=== PATIENT | female | born 1980 | race Caucasian/White ===

== ENCOUNTER 2016-06-22 09:31 | Emergency (ER) | payer OTHER ==
[~2016-06-22] VITALS: Wt 69.5 kg
[2016-06-22 10:38] LABS: BASOPHILS % 0.3 % (0.0-2.0); EOSINOPHILS # 0.1 10^3/ul (0.0-0.5); EOSINOPHILS % 0.7 % (0.0-7.0); HEMATOCRIT 40.6 % (37.0-47.0); HEMOGLOBIN 13.7 g/dl (12.0-16.0); LYMPHOCYTES # 1.8 10^3/ul (0.8-2.9); LYMPHOCYTES % 22.7 % (15.0-51.0); MEAN CORPUSCULAR HEMOGLOBIN 28.2 pg (29.0-33.0); MEAN CORPUSCULAR HGB CONC 33.7 g/dl (32.0-37.0); MEAN CORPUSCULAR VOLUME 83.6 fl (82.0-101.0); MEAN PLATELET VOLUME 8.1 fl (7.4-10.4); MONOCYTE # 0.4 10^3/ul (0.3-0.9); MONOCYTES % 4.7 % (0.0-11.0); NEUTROPHIL # 5.7 10^3/ul (1.6-7.5); NEUTROPHILS % 71.6 % (39.0-77.0); PLATELET COUNT 264 10^3/UL (140-440); RED BLOOD COUNT 4.85 10^6/ul (4.20-5.40); RED CELL DISTRIBUTION WIDTH 12.8 % (11.5-14.5); UNCORRECTED WBC 7.9 10^3/ul (4.8-10.8); WHITE BLOOD COUNT 7.9 10^3/ul (4.8-10.8)
[2016-06-22 10:43] LABS: CONDITION 1
[2016-06-22 10:44] LABS: ADD UMIC YES; URINE BILIRUBIN (Dip) NEGATIVE (NEGATIVE); URINE BLOOD (Dip) TRACE (NEGATIVE); URINE COLOR LT. YELLOW (YELLOW); URINE GLUCOSE (Dip) NEGATIVE (NEGATIVE); URINE KETONES (Dip) NEGATIVE (NEGATIVE); URINE LEUKOCYTE ESTERASE (Dip) NEGATIVE (NEGATIVE); URINE NITRITE (Dip) NEGATIVE (NEGATIVE); URINE TOTAL PROTEIN (Dip) NEGATIVE (NEGATIVE); URINE UROBILINOGEN (Dip) 0.2 E.U./dL (0.1-1.0)
[2016-06-22 11:05] LABS: URINE RBCS 0-2 /HPF (0)
[2016-06-22 11:06] LABS: BACTERIA,URINE RARE
--- NOTE | 2016-06-22 11:19 | RADRPT ---
PROCEDURE: US Pelvis. CLINICAL INDICATION: Pelvic pain, vaginal bleeding, female TECHNIQUE: Multiple sonographic images of the pelvis were obtained utilizing a transabdominal and endovaginal technique. The images were reviewed on a PACS workstation. COMPARISON: None. FINDINGS: The uterus is anteverted and measures 10.3 x 6.5 x 5.5 cm. Within the uterus, there is a single, allan e, intrauterine with an estimated ultrasound age of 10 weeks 0 days. The crown-rump lengt h is 3.34 cm. The estimated date of delivery is January 18, 2017. The heart rate is 161 beats per minute. There is a 2.4 x 2.0 x 0.9 cm area of subchorionic hemorrhage. There is no evidence for free fluid. The right ovary has a normal echotexture and measures 3.8 x 3.5 x 3.1 cm . The left ovary has a normal echotexture and measures 3.5 x 3.3 x 2.3 cm. No adnexal ma sses are noted. IMPRESSION: 1. Single, live, 58-jhjh-0-day intrauterine with a small area of subchorionic hemorrhage. The estimated date of delivery is January 18, 2017. Continued sonographic follow-up is recommended. 2. Otherwise, unremarkable pelvic ultrasound. RPTAT: EE .Valeria Best MD, MD Date Time Electronically viewed and signed by .Valeria Best MD, on 06/22/2016 11:18 .F/
[2016-06-22 12:57] VITALS: BP 129/87; PULSE 89; RESP 18; TEMP 98.1
--- NOTE | 2016-06-22 16:40 | ERD ---
DATE OF SERVICE: 06/22/2016 HISTORY OF PRESENT ILLNESS: The patient is a 36-year-old female coming in complaining of vaginal bl eeding. Patient states she is 10 weeks . Last normal menstrual period was 04/09/2016. She is being seen by Dr. Higgins. She has no abdominal pain, no clotting. She says she just occasional br ight regular, not saturating through both pads, G1, P0, A0. PAST MEDICAL HISTORY: Denies medical problems. ALLERGIES: DENIES. SURGICAL HISTORY: Laparoscopic surgery for fibroid removal. REVIEW OF SYSTEMS: A 12-point review of systems was done. Refer to HPI for positives, all other sy stems negative. PHYSICAL EXAMINATION VITAL SIGNS: Temperature is 97.3, pulse 101, blood pressure is 136/90, respiratory 18, O2 saturatio n 99% on room air. Pain intensity of 3/10. GENERAL: The patient is well-appearing, well-nourished, no acute distress. HEENT: Atraumatic. Conjunctivae are pink. Pupils equal, round, and reactive to light. There is no s cleral icterus. Tympanic membranes clear bilaterally. Oropharynx clear. No nystagmus or photophobia . NECK: C-spine is soft and supple. There is no meningismus. There is no cervical lymphadenopathy. No JVD. No bruits. No goiter. CHEST: Clear to auscultation bilaterally. There are no rales, wheezes or rhonchi. HEART: Regular rate and rhythm. No murmurs, clicks, rubs or gallops. No S3 or S4. ABDOMEN: Soft, nontender and nondistended. Good bowel sounds. No rebound or guarding. No gross elida tonitis. No gross organomegaly or masses. No Kaiser sign or McBurney point tenderness. BACK: No midline or flank tenderness. SKIN: There is no apparent rash or petechia. The skin is warm and dry. EMERGENCY ROOM COURSE: The patient had blood work done in the ER. CBC was within normal limits. B eta quant was 184,490. Patient's urine was negative. The patient's blood type is B positive and ob stetric ultrasound showed single live 10-week-old 0-day intrauterine with a small area of subchorionic hemorrhage. Estimated date of delivery of 01/18/2017. Continued sonographic followup is recommended. Otherwise, unremarkable pelvic ultrasound. DIAGNOSES Vaginal bleeding in , possible miscarriage. MEDICAL DECISION MAKING: I have low suspicion for ectopic . Patient's hemoglobin is stabl e. Patient is not having serious heavy bleeding. The patient does not have signs of urinary tract infections, not require RhoGAM injection as she is Rh positive. Patient is stable for outpatient [facility]. Vital signs are stable. DISCHARGE: The patient is discharged stable. Patient is told to follow up with DELIMBER OPERATOR within 1 to 2 days. Patient was told if symptoms progress or worsen to return to the ER. All other questions a nswered at time of discharge. Discharge summary given at the time of departure. Patient understood and complied with plan. Patient was recommended to have pelvic rest to reduce risk of continued wo rsening bleeding. Dictated By: ROSITA KERR for VENANCIO VASQUEZ MD EH/NTS Conf#: [id number] DID#: [id number] CC: VENANCIO VASQUEZ MD;*EndCC*
== END 2016-06-22 12:59 | disposition home or self-care (01) ==
LOC: FTE 09:31
DX: O20.9 Hemorrhage in early pregnancy, unspecified (principal); Z3A.10 10 weeks gestation of pregnancy
CPT/HCPCS: 36415; 76801; 76817; 81001; 84702; 85025; 86900; 86901; Z7502; 81003

== ENCOUNTER 2017-01-21 13:37 | Inpatient (IN) | payer OTHER ==
[~2017-01-21] VITALS: Ht 154.9 cm; Wt 84.5 kg
[2017-01-21 13:58] VITALS: BP 146/89; PULSE 93; RESP 16; Ht 154.9 cm; Wt 84.5 kg
[2017-01-21 14:16] LABS: ADD UMIC YES; UR ASCORBIC ACID NEGATIVE (NEGATIVE); UR BACTERIA FEW /HPF (NONE SEEN); UR BILIRUBIN (Dip) NEGATIVE (NEGATIVE); UR BLOOD (Dip) NEGATIVE (NEGATIVE); UR CLARITY CLEAR (CLEAR); UR COLOR STRAW (YELLOW); UR GLUCOSE (Dip) NEGATIVE (NEGATIVE); UR KETONES (Dip) NEGATIVE (NEGATIVE); UR LEUKOCYTE ESTERASE (Dip) TRACE Leu/ul (NEGATIVE); UR NITRITE (Dip) NEGATIVE (NEGATIVE); UR RBC 0 /HPF (0-5); UR SPECIFIC GRAVITY (Dip) 1.009 (1.003-1.030); UR TOTAL PROTEIN (Dip) NEGATIVE (NEGATIVE); UR UROBILINOGEN (Dip) NEGATIVE (NEGATIVE)
[2017-01-21 14:55] LABS: BASOPHILS % 0.5 % (0.0-2.0); EOSINOPHILS # 0.1 10^3/ul (0.0-0.5); EOSINOPHILS % 0.6 % (0.0-7.0); HEMATOCRIT 41.3 % (37.0-47.0); HEMOGLOBIN 13.7 g/dl (12.0-16.0); LYMPHOCYTES # 1.8 10^3/ul (0.8-2.9); LYMPHOCYTES % 20.2 % (15.0-51.0); MEAN CORPUSCULAR HEMOGLOBIN 28.4 pg (29.0-33.0); MEAN CORPUSCULAR HGB CONC 33.2 g/dl (32.0-37.0); MEAN CORPUSCULAR VOLUME 85.7 fl (82.0-101.0); MEAN PLATELET VOLUME 11.1 fl (7.4-10.4); MONOCYTE # 0.7 10^3/ul (0.3-0.9); MONOCYTES % 7.6 % (0.0-11.0); NEUTROPHIL # 6.1 10^3/ul (1.6-7.5); NEUTROPHILS % 69.8 % (39.0-77.0); PLATELET COUNT 208 10^3/UL (140-415); RED BLOOD COUNT 4.82 10^6/ul (4.20-5.40); RED CELL DISTRIBUTION WIDTH 13.3 % (11.5-14.5); WHITE BLOOD COUNT 8.8 10^3/ul (4.8-10.8)
[2017-01-21 15:04] LABS: INR 0.88; PARTIAL THROMBOPLASTIN TIME 26.6 Sec (25.0-35.0); PROTIME 11.9 Sec (12.2-14.2); PT RATIO 0.9
[2017-01-21 15:09] LABS: ALBUMIN 3.5 g/dl (3.3-4.9); ALBUMIN/GLOBULIN RATIO 1.02; BILIRUBIN,INDIRECT 0.3 mg/dl (0-1.1); BILIRUBIN,TOTAL 0.3 mg/dl (0.2-1.3); CALCIUM 9.1 mg/dl (8.4-10.2); CREATININE 0.5 mg/dl (0.44-1.00); POTASSIUM 4.1 mmol/L (3.5-5.1); TOTAL PROTEIN 6.9 g/dl (6.1-8.1); URIC ACID 5.3 mg/dl (3.1-7.9)
--- NOTE | 2017-01-21 15:59 | RADRPT ---
PROCEDURE: US OB biophysical profile. CLINICAL INDICATION: labor pain TECHNIQUE: Multiple sonographic images of the pelvis were obtained. The images were reviewed on a PACS workstation. COMPARISON: No prior studies are available for comparison. FINDINGS: There is a single viable intrauterine gestation. Cardiac activity is present with 137 beats per min [place]. There is a vertex presentation. The placenta is anterior. There is no evidence of placental abruption. There is a decreased amount of amniotic fluid with an LEENA = 4.2 cm. Biophysical profile: movement 2/2 tone 2/2. breathing 2/2 LEENA 0/2 Total 11/20 RPTAT: AA . IMPRESSION: Abnormal biophysical profile. Oligohydramnios. . .Garo Allen MD, Date Time Electronically viewed and signed by .Garo Allen MD, MD on 01/21/2017 15:59 .S/
--- NOTE | 2017-01-21 16:14 | TRIAGE ---
OB Triage Datetime Report Generated by CPN: 01/21/2017 16:13 Datetime: 01/21/2017 15:30 Labor Evaluation Frequency: irreg Monitor Mode: Palpation Duration (sec)2399: 50-60 Quality: Mild Pattern: Normal: <= 5 Contractions in 10 Minutes Resting Tone [place]: Relaxed Heart Rate FHR Baseline Rate: 135 Monitor Mode: External US Variability: Moderate 6-25 bpm Accelerations: 15X15 Decelerations: None Category: Category I Pain Assessment Pain Presence: None/Denies Pain Type: N/A Datetime: 01/21/2017 14:30 Labor Evaluation Frequency: Irreg Monitor Mode: External Duration (sec)2399: 60-90 Quality: Mild Pattern: Normal: <= 5 Contractions in 10 Minutes Resting Tone [place]: Relaxed Heart Rate FHR Baseline Rate: 135 Monitor Mode: External US Variability: Moderate 6-25 bpm Accelerations: 15X15 Decelerations: None Category: Category I Pain Assessment Pain Presence: None/Denies Pain Type: N/A Datetime: 01/21/2017 13:56 Assessment Type: Triage Maternal Assessment Level of Consciousness: Fully Conscious DTR's/Clonus: DTRs 2+ Headache: Frontal Blurred Vision: No Respiratory Effort: Unlabored; Regular Rhythm; Equal Expansion Breath Sounds, Right: Clear and Equal Nausea/Vomiting: Present RUQ Epigastric Pain: Denies Lower Extremities Edema: Bilateral Lower Extremities Degree: 1+ Upper Extremities Edema: None Degree: None Facial Edema: None Fall Risk Assessment History of Falling: (0) No Secondary Diagnosis: (0) No Ambulatory Aid: (0) Bedrest/Nurse Assist IV Therapy: (0) No Gait: (0) Normal/Bedrest/Immobile Mental Status: (0) Oriented to Own Ability Fall Score: 0 Fall Risk Score Definition: No Risk: No action required Datetime: 01/21/2017 13:52 Time of Arrival: 01/21/2017 13:30 EGA: 40.0 Arrived By: Ambulatory Arrived From: Office Chief Complaint: Pt. came to hospital for r/o gestational hypertension due to high bp 139/98 @ off ice today, pt. also c/o headache, pain level 3/10, deny dizziness, deny epigastric pain Movement: Present Contractions: Denies/Absent Rupture of Membranes: Denies Vaginal Bleeding: None Vaginal Discharge: Denies Recent Sexual Intercouse: Denies Abdominal Trauma: Not Applicable Patient Complaints: Headache Initial Plan: pih labs, BPP, 24HR urine collection
[2017-01-21] MEDS ORDERED: CARBOPROST 250 MCG INJ IM PRN (16:30)
[2017-01-21] MEDS ORDERED: OXYTOCIN 30 UNITS/LR 500 ML IV PRN (16:30)
[2017-01-21] MEDS ORDERED: METHYLERGONOVINE 0.2 MG INJ IM PRN (16:30)
[2017-01-21] MEDS ORDERED: MISOPROSTOL 200 MCG TAB PR PRN (16:30)
[2017-01-21] MEDS ORDERED: CEFAZOLIN 2 GM/50 ML (PMX) 50 ML IV SCH (16:30)
[2017-01-21] MEDS: LACTATED RINGER'S 1,000 ML IV SCH ×2 (16:33→23:07)
[2017-01-21] MEDS ORDERED: IBUPROFEN 600 MG TAB PO PRN (17:30)
[2017-01-21] MEDS ORDERED: HYDROCODONE/APAP (5/325) TAB PO PRN (17:30)
[2017-01-21] MEDS ORDERED: OXYTOCIN 30 UNITS/LR 500 ML IV SCH ×2 (17:30)
[2017-01-21] MEDS ORDERED: LIDOCAINE 1% (MPF) 30 ML INJ INJ PRN (17:30)
[2017-01-21] MEDS ORDERED: DINOPROSTONE 10 MG VAG SUPP VAG ONE (17:30)
[2017-01-21] MEDS ORDERED: AMPICILLIN 2 GM/NS (PMX) 100 ML IV ONE (17:30)
[2017-01-21] MEDS ORDERED: LACTATED RINGER'S 1,000 ML IV PRN (18:00)
[2017-01-21] MEDS: AMPICILLIN 1 GM/NS (PMX) 50 ML IV SCH (22:09)
[2017-01-21] MEDS ORDERED: ACETAMINOPHEN 500 MG TAB PO ONE (23:34)
[2017-01-22] MEDS ORDERED: ACETAMINOPHEN 500 MG TAB PO PRN
--- NOTE | 2017-01-22 01:43 | RADRPT ---
PROCEDURE: Obstetrical ultrasound, limited. CLINICAL INDICATION: Pelvic pain. TECHNIQUE: Multiple sonographic images of the pelvis were obtained using transabdominal technique . Images were obtained with gutierrez scale and color Doppler. The images were reviewed on a PACS works tation. COMPARISON: 01/21/2017. FINDINGS: There is a single living intrauterine gestation with the fetus in a vertex presentation. hear t tones of 143 beats per minute are identified. The placenta is anterior in location, grade 2. The re is no evidence of placenta previa or abruption. Measurements were made in order to determine age. The results are as follows: BPD =8.47 cm HC =32.51 cm AC =39.80 cm FL =7.62 cm. Estimated gestational age of approximately 36 weeks and 5 days. The estimated date of delivery is 02/14/2017. The EFW = 4132 +/- 620 grams. Estimated weight percentage equals 85.4%. IMPRESSION: Single viable intrauterine gestation of approximately 36 weeks and 5 days, with an ultrasound PRO of 02/14/2017. .Marco Peralta MD, MD Date Time Electronically viewed and signed by .Marco Peralta MD, MD on 01/22/2017 01:43 .T/
[2017-01-22] MEDS: AMPICILLIN 1 GM/NS (PMX) 50 ML IV SCH ×2 (02:21→06:09)
[2017-01-22] MEDS ORDERED: TERBUTALINE 1 MG/ML INJ SC ONE (04:50)
[2017-01-22] MEDS ORDERED: TERBUTALINE 1 ML ONE (04:50)
[2017-01-22] MEDS: LACTATED RINGER'S 1,000 ML IV SCH (05:11)
[2017-01-22] MEDS ORDERED: OXYTOCIN 30 UNITS/LR 500 ML BAG IV ONE (07:00)
[2017-01-22] MEDS ORDERED: morphine SULFATE/PF (10 MG/10 ML) INJ ONE (09:45)
[2017-01-22] MEDS ORDERED: OXYTOCIN 10 UNIT INJ ONE (09:45)
[2017-01-22] MEDS ORDERED: ONDANSETRON 4 MG INJ ONE (09:45)
[2017-01-22] MEDS ORDERED: VASOPRESSIN 20 UNITS INJ ONE (09:45)
[2017-01-22] MEDS ORDERED: morphine 2 MG INJ IV PRN (10:30)
[2017-01-22] MEDS ORDERED: NALOXONE (0.4 MG/ML) INJ IV PRN (10:30)
[2017-01-22] MEDS ORDERED: DIPHENHYDRAMINE 50 MG INJ IV PRN (10:30)
[2017-01-22] MEDS ORDERED: ONDANSETRON 4 MG INJ IV PRN (10:30)
--- NOTE | 2017-01-22 11:10 | HP ---
Date/Time of Note Date/Time of Note DATE: 01/22/17 TIME: 10:52 OB - History Hx of Present Free Text/Dictation This is a 36 years old female 1 para 0 admitted to [facility] for primary section patient request after admission asked her if she would like to have a trial of labor if not successful then she will have section patient agreed since her cervix was long and closed a trial of Cervidil induction started during the course of labor she developed variable deceleration Cervidil was removed heart tracing returned to normal patient requested to proceed with the original plan primary . Chief Complaint: 40 weeks intolerance to induction declined further trial of Estimated Due Date: Jan 21, 2017 : 1 Para: 0 Care: Good Care Ultrasounds: Normal mid trimester US Obstetrical Complications: Gestational Diabetes Medical Complications: None Past Family/Social History * Past Medical, Surgical, Family and Obstetric Histories reviewed from chart. Rubella: immune RPR/VDRL: Negative GBS Status: Negative HBsAG: Negative OB Admission Exam Vital Signs Vital Signs Vital Signs Date Time Temp Pulse Resp B/P Pulse Ox O2 Delivery O2 Flow Rate FiO2 01/21/17 13:58 98.3 93 16 146/89 Physical Exam HEENT: WNL Heart: Rhythm Normal Lungs: Clear, Equal Abdomen: WNL Extremities: Normal Reflexes: Normal Cervical Dilatation: None Effacement: 25% Station: -2 Membranes: Intact Heart Rate: 130's Accelerations: Accelerations Present Decelerations: Variable Decelerations Varibility: Moderate Contractions on Admission: None Last 72 hours Lab Results CBC & BMP 01/21/17 14:15 Liver Function Test 01/21/17 14:15 Alanine Aminotransferase (ALT/SGPT) 21 Albumin 3.5 Alkaline Phosphatase 195 H Aspartate Amino Transf (AST/SGOT) 20 Direct Bilirubin 0.00 Total Protein 6.9 OB Assessment/Plan Reason for admission: other (36 years old 1 para 0 40 weeks admitted to the hospital for induction of labor due to category 3 heart tracing induction stopped since on admission she had requested elective section pros and cons of section complication and risks discussed with her she would like to proceed with the operation) NANO DICKERSON MD Jan 22, 2017 11:02
--- NOTE | 2017-01-22 11:21 | OPR ---
Operative Report Planned Procedure Free Text/Dictation Term category 3 heart tracing during the induction patient request for elective section Procedure date Jan 22, 2017 Procedure(s) Primary due to category 3 heart tracing declined further trial of labor Performed by: NANO DICKERSON MD Assisting provider: HUYEN QUICK MD Anesthesiologist: AURA GIL MD Pre-procedure diagnosis 40 weeks category 3 heart tracing during the patient request for elective section Anesthesia Type: spinal Procedure Description Under satisfactory [epidural] anesthesia, the patient was prepped and draped and placed in a supine position, tilted to the left. Pfannenstiel incision was made, carried through the subcutaneous tissue. Bleeders brought under control with electrocautery. Fascia incised to the length of the incision. Rectus muscles from the fascia, divided midline. Peritoneum exposed, entered through a transverse incision. Exploration of abdomen revealed gravid uterus. Normal-appearing tubes and ovaries bladder flap was developed. Transverse incision was made in the lower segment of the uterus. Amniotic sac ruptured. Meconium stain [] amniotic fluid noted. Live baby girl was delivered from unengaged vertex with a nuchal cord 1 [] Nasal oropharyngeal suction was performed. baby handed to the team for immediate attention. Patient received 20 units of Pitocin placenta was delivered manually intact. Uterine cavity cleaned with wet sponge and drainage established. Uterus closed in 2 layers using Monocryl #1 [] in continuous fashion. Peritoneal cavity irrigated with warm saline. Sponge, needle and instrument count reported to be correct. Abdominal peritoneum closed with [2-0 chromic catgut] continuously. Rectus muscle approximated with 2-0 chromic at []. Fascia closed with #1. PDS, subcutaneous tissue approximated with 3 interrupted 2-0 chromic catgut skin closed with emerald. Estimated blood loss [6-700 cc]mL. Urine bag contained [ 200 cc]mL of clear urine patient tolerated procedure well transferred to recovery room in good Post-Procedure Findings: Live Baby girl 8 and 9 Complications: None Pt Condition post procedure: stable Disposition: other (Recovery room) Physician Certification I, the undersigned physician, hereby certify that I have discussed the procedure described in this consent form with this patient (or the patient's legal sales representative electric service), including: * The risk and benefits of the procedure; * Any adverse reactions that may reasonably be expected to occur; * Any alternative efficacious methods of treatment which may be medically viable ; * The potential problems that may occur during recuperation; * Potential for blood transfusion and associated risks/benefits; and * Any research or economic interest I may have regarding this treatment. I further certify that the patient/legally responsible person was encouraged to ask question and that all questions were answered. NANO DICKERSON MD Jan 22, 2017 11:21
[2017-01-22 14:35] VITALS: BP 136/80; PULSE 101; RESP 18
[2017-01-22] MEDS ORDERED: CARBOPROST 250 MCG INJ IM PRN (15:30)
[2017-01-22] MEDS ORDERED: METHYLERGONOVINE 0.2 MG INJ IM PRN (15:30)
[2017-01-22] MEDS ORDERED: MISOPROSTOL 200 MCG TAB PR PRN (15:30)
[2017-01-22] MEDS ORDERED: LANOLIN 7 GM TUBE TOP PRN (15:30)
[2017-01-22] MEDS ORDERED: HYDROCODONE/APAP (5/325) TAB PO PRN ×2 (15:30)
[2017-01-22] MEDS ORDERED: OXYCODONE/ACETAMINOPHEN (5/325) TAB PO PRN ×2 (15:30)
[2017-01-22] MEDS ORDERED: OXYTOCIN 30 UNITS/LR 500 ML IV PRN (15:30)
[2017-01-22] MEDS ORDERED: CEFAZOLIN 1 GM/50 ML (PMX) 50 ML IVPB SCH (15:30)
[2017-01-22 16:00] VITALS: BP 134/71; PULSE 101; RESP 16
[2017-01-22] MEDS: OXYTOCIN 30 UNITS/LR 500 ML IV SCH ×2 (16:01→20:57)
[2017-01-22] MEDS: KETOROLAC 30 MG INJ IV PRN (16:17)
[2017-01-22 20:05] VITALS: BP 138/85; PULSE 100; RESP 19
[2017-01-22] MEDS: SENNA/DOCUSATE NA (8.6MG/50MG) TAB PO SCH (20:57)
[2017-01-23 00:30] VITALS: BP 114/67; PULSE 100; RESP 19
[2017-01-23] MEDS: KETOROLAC 30 MG INJ IV PRN (01:17)
[2017-01-23] MEDS: OXYTOCIN 30 UNITS/LR 500 ML IV SCH ×3 (01:18→07:21)
[2017-01-23 04:05] VITALS: BP 118/76; PULSE 97; RESP 17
[2017-01-23] MEDS: LACTATED RINGER'S 1,000 ML IV SCH ×2 (05:26→09:30)
[2017-01-23 08:30] VITALS: BP 109/65; RESP 15
[2017-01-23 09:35] LABS: BASOPHILS % 0.2 % (0.0-2.0); EOSINOPHILS % 0.4 % (0.0-7.0); HEMATOCRIT 32.2 % (37.0-47.0); HEMOGLOBIN 10.4 g/dl (12.0-16.0); LYMPHOCYTES # 1.6 10^3/ul (0.8-2.9); LYMPHOCYTES % 15.2 % (15.0-51.0); MEAN CORPUSCULAR HGB CONC 32.3 g/dl (32.0-37.0); MEAN CORPUSCULAR VOLUME 86.6 fl (82.0-101.0); MEAN PLATELET VOLUME 10.8 fl (7.4-10.4); MONOCYTE # 0.6 10^3/ul (0.3-0.9); MONOCYTES % 5.3 % (0.0-11.0); NEUTROPHIL # 8.4 10^3/ul (1.6-7.5); NEUTROPHILS % 78.2 % (39.0-77.0); PLATELET COUNT 168 10^3/UL (140-415); RED BLOOD COUNT 3.72 10^6/ul (4.20-5.40); RED CELL DISTRIBUTION WIDTH 13.6 % (11.5-14.5); WHITE BLOOD COUNT 10.7 10^3/ul (4.8-10.8)
[2017-01-23] MEDS: SENNA/DOCUSATE NA (8.6MG/50MG) TAB PO SCH ×2 (09:42→21:40)
--- NOTE | 2017-01-23 10:20 | PN ---
Date/Time of Note Date/Time of Note DATE: 01/23/17 TIME: 10:19 OB Subjective Subjective Subjective Post day 1 Afebrile Vital signs are stable Abdomen soft mildly distended but bowel sounds present Lochia moderate Extremity normal Ambulation encouraged ANNO DICKERSON MD Jan 23, 2017 10:20
[2017-01-23] MEDS: IBUPROFEN 600 MG TAB PO SCH ×3 (12:53→23:16)
[2017-01-23 15:53] VITALS: BP 101/65; PULSE 93; RESP 15
[2017-01-23 20:15] VITALS: BP 118/66; PULSE 98; RESP 18
[2017-01-24 04:05] VITALS: BP 125/75; PULSE 95; RESP 17
[2017-01-24] MEDS: IBUPROFEN 600 MG TAB PO SCH ×4 (05:28→23:37)
[2017-01-24 08:00] VITALS: BP 137/83; PULSE 99; RESP 18
[2017-01-24] MEDS: SENNA/DOCUSATE NA (8.6MG/50MG) TAB PO SCH ×2 (09:00→21:27)
--- NOTE | 2017-01-24 12:36 | PN ---
Date/Time of Note Date/Time of Note DATE: 01/24/17 TIME: 12:35 OB Subjective Subjective Subjective Post day2 Afebrile vital signs are stable abdomen soft bowel sounds present incision dry had normal bowel movement ambulation encouraged NANO DICKERSON MD Jan 24, 2017 12:36
[2017-01-24 16:00] VITALS: BP 134/89; PULSE 108; RESP 18
[2017-01-24 20:00] VITALS: BP 138/87; PULSE 99; RESP 18
[2017-01-25 04:00] VITALS: BP 131/85; PULSE 92; RESP 18
[2017-01-25] MEDS: IBUPROFEN 600 MG TAB PO SCH ×2 (05:31→12:37)
[2017-01-25 08:00] VITALS: BP 127/87; PULSE 81; RESP 18
[2017-01-25] MEDS: SENNA/DOCUSATE NA (8.6MG/50MG) TAB PO SCH (08:10)
[2017-01-25] MEDS ORDERED: DIPHTH/TET/ACEL PERTUSS (ADULT) 0.5 ML VIAL IM* ONE (09:00)
--- NOTE | 2017-01-25 11:06 | PN ---
Date/Time of Note Date/Time of Note DATE: 01/25/17 TIME: 11:04 OB Subjective Subjective Subjective Post day 1 Afebrile Vital signs stable Abdomen soft mildly distended bowel sounds able to pass flatus incision dry extremities normal ambulation encouraged NANO DICKERSON MD Jan 25, 2017 11:06
--- NOTE | 2017-01-25 11:10 | PD.PPDC ---
GRIP ASSEMBLER Discharge Instruction Condition Patient Condition: Good Diet Diet: Resume Regular Diet Activity/Restrictions Activity: Normal Activity May Shower Restrictions: No Exercising No Lifting No Driving No Sexual Activity Nothing in the Vagina No [place] No Tampons, douche Wound/Drain Care Instructions Wound/Drain Care Instructions: Remove Steri Strips in 1 week Follow-up Follow-up with Physician: 5, Day/Days Provider Information: instructions given recommended to make appointment to be seen in the clinic in 5 Return to clinic for FAMILY LIFE COUNSELOR Instructions: Fever greater than 101 Chills Worsening abdominal pain Excessive Vaginal Bleeding More than 2 pads per hour Unable to tolerate diet OB Instructions: Breast Tenderness Depression Blurried Vision Headache Surgical Instructions: Incisional Drainage Incisional Redness NANO DICKERSON MD Jan 25, 2017 11:10
--- NOTE | 2017-01-25 11:14 | DS ---
Date/Time of Note Date/Time of Note DATE: 01/25/17 TIME: 11:13 Discharge Summary Admission/Discharge Info Admit Date/Time Jan 21, 2017 at 16:10 Discharge Date/Time January 25, 2017 at 11 am Discharge Diagnosis Post primary date 3 Patient Condition: Good Procedures Primary Hx of Present Illness Term Hospital Course Satisfactory uneventful Follow-up Plan Appointment clinic in 5 days post instructions given Primary Care Provider Not On Staff Doctor Time spent on discharge: < 30 minutes NANO DICKERSON MD Jan 25, 2017 11:14
[2017-01-25 16:00] VITALS: BP 134/76; PULSE 88; RESP 18
== END 2017-01-25 17:20 | disposition home or self-care (01) | DRG 766 ==
LOC: OBT 13:37 → L-D 13:38 → OBT 16:10 → L-D 16:10 → PP1 01-22 14:51
PROVIDERS: ADMIT Obstetrics & Gynecology; ATTEND Obstetrics & Gynecology
PROC: 3E033VJ Introduction of Other Hormone into Peripheral Vein, Percutaneous Approach (ICD-10-PCS; 2017-01-22)
PROC: 10D00Z1 Extraction of Products of Conception, Low, Open Approach (ICD-10-PCS; principal; 2017-01-22 09:30)
DX: O24.429 Gestational diabetes mellitus in childbirth, unspecified control (principal); O48.0 Post-term pregnancy; Z3A.40 40 weeks gestation of pregnancy; O76 Abnormality in fetal heart rate and rhythm complicating labor and delivery; Z37.0 Single live birth
CPT/HCPCS: 76816; 76818; 80053; 81001; 84560; 85025; 85384; 85610; 85730; 86592; 86850; 86900; 86901; 87340; 90715; 99464; G0463; J0290; J0690; J1885; J2274; J2405; J2590; J3105; J7120

== ENCOUNTER 2019-04-14 17:44 | Inpatient (IN) | payer OTHER ==
[~2019-04-14] VITALS: Ht 154.9 cm; Wt 85.2 kg
[~2019-04-14 17:44] MED LIST: PREN-93 PO
[2019-04-14 18:21] VITALS: Ht 154.9 cm; Wt 85.2 kg
[2019-04-14] MEDS: LACTATED RINGER'S 1,000 ML IV SCH ×2 (18:24→19:20)
[2019-04-14] MEDS ORDERED: ACETAMINOPHEN 325 MG TAB PO PRN (19:00)
[2019-04-14] MEDS: BETAMET NA PHOS/AC (6 MG/ML) 2 ML INJ SYG IM SCH (20:14)
[2019-04-15] MEDS: LACTATED RINGER'S 1,000 ML IV SCH ×2 (02:47→10:52)
[2019-04-15] MEDS: BETAMET NA PHOS/AC (6 MG/ML) 2 ML INJ SYG IM SCH (08:22)
[2019-04-15] MEDS ORDERED: AMPICILLIN 2 GM/NS (PMX) 100 ML IVPB SCH (20:00)
[2019-04-16] MEDS: LACTATED RINGER'S 1,000 ML IV SCH (05:08)
[2019-04-16] MEDS: AMPICILLIN 2 GM/NS (PMX) 100 ML IVPB SCH ×2 (05:13→11:07)
== END 2019-04-16 15:00 | disposition home or self-care (01) | DRG 833 ==
LOC: OBT 17:44 → L-D 17:45 → OBT 18:50 → L-D 20:05
PROVIDERS: ADMIT Obstetrics & Gynecology Obstetrics; ATTEND Obstetrics & Gynecology
DX: O46.93 Antepartum hemorrhage, unspecified, third trimester (principal); O34.219 Maternal care for unspecified type scar from previous cesarean delivery; Z3A.34 34 weeks gestation of pregnancy
CPT/HCPCS: 76815; 76817; 76818; 80053; 81001; 83036; 84560; 85025; 85384; 85460; 85610; 85730; 86850; 86900; 86901; 86920; 87086; G0463; J0290; J0702; J7120